=== PATIENT | male | born 1995 | race Caucasian/White ===

== ENCOUNTER 2021-12-19 00:32 | Inpatient (IN) | payer MEDICARE, OTHER ==
[~2021-12-19] VITALS: Ht 165.1 cm; Wt 81.6 kg
[~2021-12-19 00:32] MED LIST: ARIP5TAB10 PO; DOCU-141 PO; LEVE500T9 PO; LINA145C PO; SENN-261 PO
[2021-12-19] MEDS ORDERED: ONDANSETRON 4 MG/2 ML VIAL IV ONE ×2 (00:45→01:45)
[2021-12-19 01:22] LABS: HEMATOCRIT 40.3 % (36.7-47.1); MEAN CORPUSCULAR HEMOGLOBIN 29.9 uug (23.8-33.4); MEAN CORPUSCULAR VOLUME 87.4 fL (73.0-96.2); PLATELET COUNT (AUTO) 238 K/uL (152-348)
[2021-12-19] MEDS ORDERED: ONDANSETRON 4 MG/2 ML VIAL ONE ×2 (01:35→01:45)
[2021-12-19 01:40] LABS: BILIRUBIN,DIRECT 0.1 mg/dL (0.0-0.2); BILIRUBIN,TOTAL 0.3 mg/dL (0.2-1.0); CREATININE 1.1 mg/dL (0.6-1.3); POTASSIUM 3.5 mmol/L (3.5-5.1); TOTAL PROTEIN, SERUM 7.8 g/dL (6.4-8.2)
[2021-12-19] MEDS ORDERED: levETIRAcetam IV 500 MG in IV DEXTROSE 5% 100 ML IV ONE (02:00)
[2021-12-19] MEDS ORDERED: levETIRAcetam 500 MG/5 ML VIAL IV ONE ×2 (02:03→22:00)
[2021-12-19] MEDS ORDERED: ONDANSETRON 4 MG/2 ML VIAL IV PRN (02:30)
[2021-12-19] MEDS ORDERED: MAGNESIUM HYDROXIDE 30 ML LIQUID UDC PO PRN (02:30)
[2021-12-19] MEDS ORDERED: ACETAMINOPHEN 325 MG TABLET PO PRN (02:30)
[2021-12-19] MEDS ORDERED: METOCLOPRAMIDE HCL 10 MG/2 ML VIAL IV PRN (02:30)
[2021-12-19] MEDS ORDERED: REMEDY ESSENTIAL ZINC PASTE 113 GM TP PRN (02:30)
[2021-12-19 05:38] LABS: *BILIRUBIN,URIN NEGATIVE (NEGATIVE); *BLOOD, URINE 2+ (NEGATIVE); *CLARITY,URINE CLEAR (CLEAR); *COLOR,URINE YELLOW (YELLOW); *KETONES,URINE NEGATIVE (NEGATIVE); *UROBILINOGEN,URINE 0.2 E.U./dl (NORMAL); LEUKOCYTE ESTERASE ,URINE NEGATIVE (NEGATIVE); NITRITE, URINE NEGATIVE (NEGATIVE); UGLUCOSE NEGATIVE (NEGATIVE)
[2021-12-19 06:16] LABS: BACTERIA,URINE FEW /HPF (NONE SEEN); SQUAMOUS EPITHELIAL CELL,UR NONE SEEN /HPF (NONE SEEN); WBC,URINE 0-3 /HPF (0-3)
[2021-12-19 09:25] VITALS: BP 118/74
[2021-12-19] MEDS ORDERED: levETIRAcetam IV 1,000 MG in IV DEXTROSE 5% 100 ML IV SCH (11:00)
[2021-12-19 11:40] VITALS: BP 101/59
[2021-12-19 16:00] VITALS: BP 109/72
[2021-12-19 20:06] VITALS: BP 124/68
[2021-12-19] MEDS: levETIRAcetam 500 MG TABLET PO SCH ×2 (20:56→21:00)
[2021-12-20 00:25] VITALS: BP 103/62
[2021-12-20 04:12] VITALS: BP 109/72
[2021-12-20 06:32] LABS: HEMATOCRIT 40.3 % (36.7-47.1); MEAN CORPUSCULAR HEMOGLOBIN 29.8 uug (23.8-33.4); MEAN CORPUSCULAR VOLUME 86.9 fL (73.0-96.2); PLATELET COUNT (AUTO) 212 K/uL (152-348)
[2021-12-20 07:00] LABS: CREATININE 1.1 mg/dL (0.6-1.3); PHOSPHOROUS 4.2 mg/dL (2.5-4.9); POTASSIUM 3.8 mmol/L (3.5-5.1)
[2021-12-20] MEDS: DOCUSATE SODIUM 100 MG CAPSULE PO SCH (09:00)
[2021-12-20] MEDS: levETIRAcetam 500 MG TABLET PO SCH ×2 (09:00→20:21)
[2021-12-20] MEDS: SENNOSIDES 1 TABLET PO SCH (09:00)
[2021-12-20] MEDS: ARIPIPRAZOLE 5 MG TABLET PO SCH (09:00)
[2021-12-20 11:22] VITALS: BP 110/47
[2021-12-20 15:57] VITALS: BP 120/69
[2021-12-20 20:25] VITALS: BP 128/46
[2021-12-21 00:02] VITALS: BP 118/69
[2021-12-21 04:00] VITALS: BP 112/69
[2021-12-21 08:30] VITALS: BP 129/71
[2021-12-21] MEDS: levETIRAcetam 500 MG TABLET PO SCH (09:00)
[2021-12-21] MEDS: DOCUSATE SODIUM 100 MG CAPSULE PO SCH (09:00)
[2021-12-21] MEDS: SENNOSIDES 1 TABLET PO SCH (09:00)
[2021-12-21] MEDS: ARIPIPRAZOLE 5 MG TABLET PO SCH (09:00)
[2021-12-21 11:36] VITALS: BP 110/70
[2021-12-21] MEDS ORDERED: LEVE1000 PO (13:50)
== END 2021-12-21 14:55 | disposition home or self-care (01) | DRG 101 ==
LOC: ER 00:45 → TELE3 09:09
PROVIDERS: ADMIT Nurse Practitioner Acute Care; ATTEND Nurse Practitioner Acute Care
DX: G40.909 Epilepsy, unspecified, not intractable, without status epilepticus (principal); F84.0 Autistic disorder; F79 Unspecified intellectual disabilities; Z20.822 Contact with and (suspected) exposure to COVID-19
CPT/HCPCS: 36415; 83735; 84100; 84484; 85025; 93005; A4663; C1758; G0378; J1953; J2405